=== PATIENT | female | born 1955 | race Caucasian/White ===

== ENCOUNTER 2016-08-27 11:02 | Emergency (ER) | payer OTHER, BC ==
[2016-08-27 11:16] VITALS: BP 189/97
--- NOTE | 2016-08-27 11:43 | EDM.PDOC ---
ED HPI GENERAL MEDICAL PROBLEM - General Chief Complaint: Lower Extremity Injury/Pain Stated Complaint: LT KNEE INJURY Time Seen by Provider: 08/27/16 11:18 Source of Information: Reports: Patient History Limitations: Reports: No Limitations - History of Present Illness INITIAL COMMENTS - FREE TEXT/NARRATIVE: Patient is a 61-year-old female who presents to the ED complaining of left lateral knee discomfort. Patient states this morning while working with miniature donkey's. One of the donkey's hit the lateral aspect of her left knee causing a popping noise and giving out. Patient did fall to the ground was able to get up on her own accord and weight-bear with no issues. Little while later another donkey actually brushed up against the same knee causing her knee to give out and the patient fell to the ground and experienced pain. She was not able to weight-bear at that time. She presents to the ED complaining of mild pain to the lateral aspect of the left knee. Of note patient does have white coat syndrome and notes her blood pressures is elevated as well. She has no additional past medical history and currently taking no medications. Surgical history noncontributory. She has no previous injury to the affected knee. Denies any smoking or recreational drug use. Onset: Today, Sudden Location: Reports: Lower Extremity, Left Quality: Reports: Ache Severity: Mild Improves with: Reports: None Treatments DOOR TO DOOR SALES REPRESENTATIVE: Reports: Cold Therapy, NSAIDS Other Treatments DOOR TO [employer] SALES REPRESENTATIVE: 800mg Motrin at 1000 as well as ice pack from [employer] - Related Data Allergies Allergy/AdvReac Type Severity Reaction Status Date / Time No Known Allergies Allergy Verified 08/27/16 11:10 Home Meds: Home Meds . [No Known Home Meds] 08/27/16 [History] Past Medical History HEENT History: Reports: None PATIENT TRANSPORT ORDERLY History: Reports: Other (See Below) Other OB/BYN History: ruptured ovarian cyst Endocrine/Metabolic History: Reports: Hypothyroidism - Past Surgical History Other Endocrine Surgeries/Procedures: not on medication takes natural suppliments Social & Family History - Family History Family Medical History: Noncontributory - Tobacco Use Smoking Status *Q: Never Smoker - Caffeine Use Caffeine Use: Reports: Coffee - Recreational Drug Use Recreational Drug Use: No Review of Systems - Review of Systems Review Of Systems: See Below Musculoskeletal: Reports: Joint Pain (left knee) Neurological: Reports: Difficulty Walking. Denies: Numbness, Tingling ED EXAM, GENERAL - Physical Exam Exam: See Below Exam Limited By: No Limitations General Appearance: Alert, WD/WN, No Apparent Distress Ears: Hearing Grossly Normal Nose: Normal Inspection Throat/Mouth: Normal Voice, No Airway Compromise Neck: Normal Inspection, Supple Respiratory/Chest: No Respiratory Distress, Lungs Clear, Normal Breath Sounds, No Accessory Muscle Use, Chest Non-Tender Cardiovascular: Normal Peripheral Pulses, Regular Rate, Rhythm Peripheral Pulses: 2+: Posterior Tibial (L), Dorsalis Pedis (L) Back Exam: Normal Inspection Extremities: Normal Inspection, Normal Range of Motion, No Pedal Edema, Normal Capillary Refill, Other (Minimal pain to the left side of her knee with palpation. No decreased active range of motion or passive range of motion noted. No joint laxity noted. Patients knees do valgus in naturally. No swelling , bruising, sensory/motor deficits noted. Patient was able to way weight bear with no pain.) Neurological: Alert, Oriented, CN II-XII Intact, Normal Cognition, No Motor/ Sensory Deficits Psychiatric: Normal Affect, Normal Mood Skin Exam: Warm, Dry, Intact, Normal Color, No Rash Course - Vital Signs Last Recorded V/S: Last Vital Signs Temp 97.6 F 08/27/16 11:10 Pulse 74 08/27/16 11:10 Resp 18 08/27/16 11:10 BP 189/97 H 08/27/16 11:10 Pulse Ox 97 08/27/16 11:10 - Re-Assessments/Exams Free Text/Narrative Re-Assessment/Exam: Examination did not elicit any concerning findings. Patient did have some minimal pain with palpation the left lateral knee. No swelling, bony abnormalities, joint lacticity, bruising, or abrasions present. Ordered x-ray of the left knee. 08/27/16 12:17 X-ray of the left knee revealed degenerative changes only no acute bony abnormalities. Will discharge patient home with instructions as documented. Crutches were provided upon discharge. Departure - Departure Time of Disposition: 12:38 Disposition: Home, Self-Care 01 Condition: Good Clinical Impression: Knee pain, left Qualifiers: Chronicity: acute Qualified Code(s): M25.562 - Pain in left knee - Discharge Information Instructions: Crutch Use, [id number] Referrals: Naomi Dempsey [employer]ANCH[employer] SALES REPRESENTATIVE [Primary Care Provider] - Forms: ED Department Discharge, Return to Work/School Form Additional Instructions: Refrain from any activities that cause worsening pain. Utilizes crutches and acewrap for the next 3 days, advancing weight tolerance as able thereafter. If you develop swelling, elevate when able to reduce swelling and pain. Apply ice to affected area 4-6 times daily, 20 minutes in duration, do not apply ice directly on the skin. Take Tylenol and ibuprofen and alternate fashion for pain. Follow-up with orthopedic surgeon Dr. Molina in 7-10 days if symptoms have not drastically improved. Return to the ED for any new or worsening symptoms. Blood pressure was quite high today while in the ED. This may be related to white coat syndrome but I suggest buying a blood pressure machine and rechecking her blood pressure twice daily keeping a daily log and seeing your primary care provider in about 2 weeks to discuss treatment if necessary. Bring your monitor with you to the clinic so this may be calibrated accordingly to their blood pressure machine.
--- NOTE | 2016-08-28 08:26 | CR ---
Left knee: AP and lateral views of the left knee were obtained. Comparison: No previous knee exam. Medial and lateral joint spaces are maintained in height. No joint effusion is seen. No fracture or other abnormality is appreciated. Impression: 1. No abnormality is identified on two-view left knee study. Diagnostic code #1
== END 2016-08-27 12:38 | disposition home or self-care (01) ==
LOC: JD.ED 11:02
DX: M25.562 Pain in left knee (principal); E03.9 Hypothyroidism, unspecified
CPT/HCPCS: 73560-26-LT; 73560-LT; 99282; 99284